=== PATIENT | male | born 1990 ===

== ENCOUNTER 2017-03-10 15:44 | Inpatient (IN) | payer OTHER ==
--- NOTE | 2017-03-10 16:41 | C.PDOC ---
History Of Present Illness 26 y/o male sent from [facility] for psych admission presents to the ED with complains of feeling nervous, angry and having paranoid thoughts. Pt states he can't hold a job down. He used weed and thinks it was laced with PCP. Pt now complaining of headache similar to past migraines. Denies fever, vomiting , chest pain, abdominal pain, SI, HI, trauma or any other complaints. Time Seen by Provider: 03/10/17 15:51 Chief Complaint (Nursing): Psychiatric Evaluation History Per: Patient History/Exam Limitations: no limitations Onset/Duration Of Symptoms: Days Current Symptoms Are (Timing): Still Present Modifying Factor(s): Marijuana Severity: Moderate Associated Symptoms: Anxiety, Depression, Paranoia. denies: Suicidal Thoughts Involuntary Hold By: None Recent travel outside of the [place]: No Past Medical History Reviewed: Historical Data, Nursing Documentation, Vital Signs Vital Signs: Last Vital Signs Temp 97 F L 03/11/17 08:02 Pulse 91 H 03/11/17 16:18 Resp 18 03/11/17 08:02 BP 117/78 03/11/17 16:18 Pulse Ox 100 03/11/17 17:07 - Medical History PMH: Bipolar Disorder, Depression Family History: States: Unknown Family Hx - Social History Hx Alcohol Use: Yes Hx Substance Use: Yes - Immunization History Hx Tetanus Toxoid Vaccination: Yes Hx Influenza Vaccination: Yes Hx Pneumococcal Vaccination: No Review Of Systems Except As Marked, All Systems Reviewed And Found Negative. Constitutional: Negative for: Fever Cardiovascular: Negative for: Chest Pain Gastrointestinal: Negative for: Vomiting, Abdominal Pain Psych: Positive for: Anxiety, Other (nervous, angry, paranoid thoughts). Negative for: Suicidal ideation Physical Exam - Physical Exam Appears: Non-toxic, No Acute Distress, Other (anxious, mild emotional distress) Skin: Warm, Dry, No Rash Head: Atraumatic, Normacephalic Neck: Normal, Normal ROM Chest: Symmetrical Cardiovascular: Rhythm Regular, No Murmur Respiratory: Normal Breath Sounds, No Rales, No Rhonchi, No Wheezing Gastrointestinal/Abdominal: Soft, No Tenderness Extremity: Normal ROM Extremity: Bilateral: Atraumatic Neurological/Psych: Oriented x3, Normal Speech, Normal Cognition, Normal Cranial Nerves, No Cerebellar Signs, Normal Motor, Normal Sensation, Other ( depressed mood) ED Course And Treatment - Laboratory Results Result Diagrams: 03/10/17 17:34 O2 Sat by Pulse Oximetry: 100 (room air) Pulse Ox Interpretation: Normal Progress Note: Plan: ativan, tylenol Medical Decision Making Medical Decision Makin yo M with pmh of depression and anxiety presents for direct psych admission from [facility], patient has been medically cleared by [facility] for psych admission under Dr. Cas cain at [facility] [place]. Patient medicated with tylenol PO and ativan IM. Of note, patient had a T CK of 655 documented at [facility], and was treated with NS IVF. Repeat CMP, CK, CK-MB ordered. Total CK 628. Disposition - Disposition Disposition: HOSPITALIZED Disposition Time: 16:41 Condition: STABLE - Clinical Impression Clinical Impression: Depression, Anxiety, Manic bipolar I disorder - PA / LOCAL AREA NETWORK SYSTEMS ADMINSTRATOR / Resident Statement MD/DO has reviewed & agrees with the documentation as recorded. - Scribe Statement The provider has reviewed the documentation as recorded by the Scribdante Luz All medical record entries made by the Scribe were at my direction and personally dictated by me. I have reviewed the chart and agree that the record accurately reflects my personal performance of the history, physical exam, medical decision making, and the department course for this patient. I have also personally directed, reviewed, and agree with the discharge instructions and disposition.
[2017-03-10 18:14] LABS: CHLORIDE 96 mmol/L (98-107); SODIUM 140 mmol/L (132-148)
[2017-03-10 18:15] LABS: POTASSIUM 4.1 mmol/L (3.6-5.2)
[2017-03-10 18:17] LABS: ALB/GLOB RATIO 1.4 (1.0-2.1); ALKALINE PHOSPHATASE 86 U/L (38-126); ALT/SGPT 30 U/L (21-72); AST/SGOT 30 U/L (17-59); BILIRUBIN,TOTAL 0.5 mg/dL (0.2-1.3); BLOOD UREA NITROGEN 15 mg/dL (9-20); CARBON DIOXIDE 29 mmol/L (22-30); GFR AFRICAN-AMERICAN > 60; GLUCOSE,RANDOM 96 mg/dL (75-110); TOTAL PROTEIN 8.7 g/dL (6.3-8.3)
[2017-03-10 18:18] LABS: CALCIUM 9.4 mg/dl (8.6-10.4)
[2017-03-10] MEDS ORDERED: DiphenhydrAMINE 50 mg/ml Inj IM PRN (19:03)
--- NOTE | 2017-03-11 09:45 | PCM.PSYCH ---
Initial Psychiatric Evaluation - Initial Psychiatric Evaluation Type of Admission: Voluntary Legal Status: Capacity Chief Complaint (in patient's own words): "My mind is racing and I can't control how I feel." History of Present Illness and Precipitating Events: Patient is a 26 year old male who currently lives alone due to his substance abuse, but his and 1 year old son live in [place]. 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 Patient states he became depressed and suicidal, so he came to the ED. Patient sent from [facility] for psych admission. He spends $60 per week on weed and uses 2-3 bags a day. He states he sometimes uses coke, and his last use was 1 week ago at a [place], after which he felt paranoid and left. Patient remained disorganized and internally preoccupied throughout the interview. He states he feels angry, nervous, anxious, paranoid, and has racing thoughts. He states he smoked a blunt from weed he got from a different supplier , and thinks it was laced with PCP. After smoking the blunt, he had auditory hallucinations of his brother who 1 year ago by drowning saying "it's going to be okay." At this point in the interview, patient started crying and slammed on the table. Patient states he becomes so depressed that he is suicidal , but he denies any past attempts or any plan, saying "I could never actually do it, but I get into one of those moods. It should have been me, not my brother." Patient's mood was labile during interview, ranging from crying to laughing to slamming the table to apologizing. He remained suspicious, delusional and paranoid throughout the interview. PMH: denies Allergies: denies Current Medications: Active Medications Generic Name Dose Route Start Last Admin Trade Name Freq PRN Reason Stop Dose Admin Diphenhydramine HCl 50 mg 03/10/17 19:03 03/10/17 20:17 Benadryl IM 50 mg Q6 PRN Administration Agitation Hydroxyzine HCl 50 mg 03/10/17 19:04 Atarax PO Q6 PRN Anxiety Ibuprofen 600 mg 03/10/17 18:52 Motrin Tab PO Q6 PRN Pain, moderate (4-7) Lorazepam 1 mg 03/10/17 18:52 Ativan PO Q6 PRN withdrawal Quetiapine Fumarate 50 mg 03/10/17 22:00 03/10/17 21:12 Seroquel PO 50 mg HS RAO Administration Past Psychiatric History - Past Psychiatric History Previous Treatment History: Inpatient Pertinent Medical Hx (Current Medical&Sleep Prob, Allergies): Allergies Allergy/AdvReac Type Severity Reaction Status Date / Time No Known Allergies Allergy Verified 03/10/17 16:23 No Known Home Med 03/10/17 Review of Systems - Review of Systems All systems: reviewed and no additional remarkable complaints except - Psychiatric Psychiatric: Anxiety, Auditory Hallucinations, Irritability, Mood Swings, Panic Attacks, Paranoia, Suicidal Ideation Mental Status Examination - Personal Presentation Personal Presentation: Looks older than stated age - Affect Affect: Broad, Other (Labile) - Motor Activity Motor Activity: Psychomotor Agitation - Reliability in Providing Information Reliability in Providing Information: Poor, due to alteration in thoughts, Poor , due to altered mood - Speech Speech: Disorganized - Mood Mood: Anxious, Other (Labile) - Formal Thought Process Formal Thought Process: Hallucinations, Delusions, Paranoia, Loosening of associations, Flight of ideas, Circumstantial - Hallucinations/Delusions Hallucinations: Auditory Delusions: Persecution - Obsessions/Compulsions Obsessions: No Compulsions: No - Cognitive Functions Orientation: Person, Place, Situation, Time Sensorium: Alert Attention/Concentration: Attentive Abstract Thinking: [place] Estimate of Intelligence: Below average Judgement: Imparied, as evidence by: Poor judgement, Imparied, as evidence by: Lack of insight into illness - Risk Risk: Suicidal, Diminished functioning - Strength & Assets Inventory Strength & Assets Inventory: Family support DSM 5 DX - DSM 5 DSM 5 Diagnosis: Bipolar disorder most recent episode manic severe with psychotic features Rule out schizoaffective disorder bipolar type Cocaine use disorder severe Cannabis use disorder severe - Recommended/Plan of Treatment Treatment Recommendations and Plan of Treatment: Bipolar disorder most recent episode manic severe with psychotic features Rule out schizoaffective disorder bipolar type CBT Psychoeducation Supportive therapy, group therapy, individual therapy Depakote 500 mg by mouth twice a day Klonopin 1 mg by mouth twice a day Trazodone 100 mg by mouth daily at bedtime Haldol 5 mg by mouth twice a day Haldol 5 mg every 8 hours when necessary Cannabis use disorder severe CBT Psychoeducation Supportive therapy, individual therapy Use OK for abstinence Cocaine use disorder severe CBT Psychoeducation Supportive therapy, individual therapy Use OK for abstinence - Smoking Cessation Smoking Cessation Initiated: No
[2017-03-11] MEDS: Divalproex 500 mg DR Tab PO SCH ×2 (10:38→17:31)
--- NOTE | 2017-03-12 10:19 | PCM.PYCHPN ---
Psychiatric Progress Note - Psychiatric Progress Note Patient seen today, length of contact: 16 min Patient Chief Complaint: "My mind is racing and I can't control how I feel." Problems Identified/Issues Discussed: Patient seen and evaluated, chart reviewed and discussed with the nurse. Patient remained irritable and agitated. He still reports racing of thoughts and flight of ideas. He remained delusional and suspicious. He remained disorganized and internally preoccupied and continued to pace back and forth in the hallways. However, he is taking medication and denied any side effects. Supportive therapy and psychoeducation were given. Medication Change: Yes (increase klonopin) Medical Record Reviewed: Yes Mental Status Examination - Cognitive Function Orientation: Person, Place, Situation, Time Memory: Intact Attention: Poor Concentration: Poor Association: Loose Fund of Knowledge: Poor - Mood Mood: Anxious, Other (Labile) - Affect Affect: Broad, Other (Labile) - Speech Speech: Pressured (labile) - Formal Thought Process Formal Thought Process: Hallucinations, Delusions, Paranoia, Loosening of associations, Flight of ideas, Circumstantial - Suicidal Ideation Suicidal Ideation: No - Homicidal Ideation Homicidal Ideation: No Goal/Treatment Plan - Goal/Treatment Plan Need for Continued Stay: Discharge may exacerbated symptoms, Severe functional impairment Progress Toward Problem(s) and Goals/Treatment Plan: Bipolar disorder most recent episode manic severe with psychotic features Rule out schizoaffective disorder bipolar type CBT Psychoeducation Supportive therapy, group therapy, individual therapy Depakote 500 mg by mouth twice a day Klonopin 1 mg by mouth twice a day Trazodone 100 mg by mouth daily at bedtime Haldol 5 mg by mouth twice a day Haldol 5 mg every 8 hours when necessary Cannabis use disorder severe CBT Psychoeducation Supportive therapy, individual therapy Use MT for abstinence Cocaine use disorder severe CBT Psychoeducation Supportive therapy, individual therapy Use MT for abstinence - Smoking Cessation Smoking Cessation Initiated: No
[2017-03-12] MEDS: Divalproex 500 mg DR Tab PO SCH ×2 (14:58→17:37)
[2017-03-13] MEDS: Divalproex 500 mg DR Tab PO SCH ×2 (09:59→19:33)
--- NOTE | 2017-03-13 14:25 | PCM.PYCHPN ---
Psychiatric Progress Note - Psychiatric Progress Note Patient seen today, length of contact: 16 min Patient Chief Complaint: "I'm feeling really good." Problems Identified/Issues Discussed: Patient seen and evaluated today, chart reviewed and discussed with the nurse. Patient remained remained delusional and paranoid. However he appeared more organized than before and appeared less internally preoccupied than yesterday. However he continued to pace back and forth in the hallways. Patient started asking to be discharged today as he started feeling better. Patient was very adamant about leaving because his '[birth year] is [birth year]. Patient counseled on consequences of early discharge, but tentative plan for Thursday discharge was discussed. he s taking medications and denies any side effects Supportive therapy and psychoeducation were given. Medication Change: Yes (increase klonopin) Medical Record Reviewed: Yes Mental Status Examination - Cognitive Function Orientation: Person, Place, Situation, Time Memory: Intact Attention: WNL Concentration: Poor Association: WNL Fund of Knowledge: Poor - Mood Mood: Anxious, Other (Labile) - Affect Affect: Broad, Other (Labile) - Speech Speech: Soft, Pressured (labile) - Formal Thought Process Formal Thought Process: Hallucinations, Delusions, Paranoia, Flight of ideas - Suicidal Ideation Suicidal Ideation: No - Homicidal Ideation Homicidal Ideation: No Goal/Treatment Plan - Goal/Treatment Plan Need for Continued Stay: Discharge may exacerbated symptoms, Severe functional impairment Progress Toward Problem(s) and Goals/Treatment Plan: Bipolar disorder most recent episode manic severe with psychotic features Rule out schizoaffective disorder bipolar type CBT Psychoeducation Supportive therapy, group therapy, individual therapy Depakote 500 mg by mouth twice a day DC Klonopin 1 mg by mouth twice a day DC Seroquel 100 mg by mouth daily at bedtime Haldol 5 mg by mouth twice a day Haldol 5 mg every 8 hours when necessary Cannabis use disorder severe CBT Psychoeducation Supportive therapy, individual therapy Use PR for abstinence Cocaine use disorder severe CBT Psychoeducation Supportive therapy, individual therapy Use PR for abstinence - Smoking Cessation Smoking Cessation Initiated: No
[2017-03-14] MEDS: Divalproex 500 mg DR Tab PO SCH (09:06)
[2017-03-14 11:36] VITALS: BP 111/65; PULSE 69; RESP 18; TEMP 98; O2SAT 99
--- NOTE | 2017-03-14 13:58 | PCM.PYCHDC ---
Mental Status Examination - Mental Status Examination Orientation: Person, Place, Situation, Time Memory: Intact Mood: Neutral Affect: Other (Appropriate) Speech: Appropriate Attention: WNL Concentration: WNL Association: WNL Fund of Knowledge: WNL Formal Thought Process: No Impairment Description of patient's judgement and insight: Fair Psychotic Thoughts and Behaviors: None Suicidal Ideation: No Current Homicidal Ideation?: No Discharge Summary - Discharge Note Reason for Hospitalization: Depression and substance use Laboratory Data: Reviewed Consultations:: List each consultation separately and include: 1. Reason for request. 2. Findings. 3. Follow-up Summary of Hospital Course include:: 1. Description of specific treatment plan utilized for patients during their course of treatmen. 2. Summarize the time- course for resolution of acute symptoms and/or regressed behaviors. 3. Describe issues identified and worked on during hospitalization. 4. Describe medication utilized. 5. Describe medical problems identified and treated. 6. Reassessment of suicide risk Summary of Hospital Course: Patient was admitted because of disturbed mood and auditory hallucinations. He was also feeling depressed and suicidal. Patient was started on Depakote and Haldol. With the treatment patient gradually started feeling better. Yesterday patient started feeling better and his tentative discharge was on Thursday. Today patient reported feeling much better, no auditory or visual hallucinations, patient denied any suicidal or homicidal ideations at the time of evaluation. Patient was evaluated in the presence of a staff member. His thoughts were more focused. Patient requested for discharge today. Education provided about treatment and also to stay until Thursday which is tomorrow. Patient wanted to go home today. As patient was stable. Nurses also confirmed that patient was stable without any behavioral problem. Patient was discharged today. At the time of evaluation and discharge, patient was awake alert oriented 3, had no delusions, no auditory or visual hallucinations, no suicidal ideations or homicidal ideations. Patient was discharged in a stable condition. - Final Diagnosis (DSM 5) Condition upon Discharge: STABLE Disposition: HOME/ ROUTINE Prescriptions/Medication Reconciliation: Divalproex [Depakote DR(*BID*)] 500 mg PO BID #60 ect Haloperidol [Haldol] 5 mg PO BID #60 tab - Smoking Cessation Smoking Cessation Medication prescribed: No - Antipsychotic Medications Pt discharged on 2 or more routine antipsychotic medications: No
== END 2017-03-14 13:24 | disposition home or self-care (01) | DRG 430 ==
LOC: C.ER 15:44 → C.5E 16:45
PROVIDERS: ADMIT Psychiatry & Neurology Psychiatry; ATTEND Psychiatry & Neurology Psychiatry
PROC: GZHZZZZ Group Psychotherapy (ICD-10-PCS; principal; 2017-03-10)
PROC: GZ58ZZZ Individual Psychotherapy, Cognitive-Behavioral (ICD-10-PCS; 2017-03-10)
PROC: GZ56ZZZ Individual Psychotherapy, Supportive (ICD-10-PCS; 2017-03-10)
PROC: HZ32ZZZ Individual Counseling for Substance Abuse Treatment, Cognitive-Behavioral (ICD-10-PCS; 2017-03-10)
PROC: HZ36ZZZ Individual Counseling for Substance Abuse Treatment, Psychoeducation (ICD-10-PCS; 2017-03-10)
PROC: HZ93ZZZ Pharmacotherapy for Substance Abuse Treatment, Antabuse (ICD-10-PCS; 2017-03-10)
DX: F30.2 Manic episode, severe with psychotic symptoms (principal); F41.9 Anxiety disorder, unspecified; F14.90 Cocaine use, unspecified, uncomplicated; F12.90 Cannabis use, unspecified, uncomplicated